=== PATIENT | male | born 2000 | race Hispanic/Latino ===

== ENCOUNTER → 2024-01-21 12:59 | Outpatient (CLI) | payer OTHER, SELFPAY ==
--- NOTE | 2024-01-21 14:00 | DI.MRI.S_ITS ---
PROCEDURE: MR ANKLE LT WO CON INDICATIONS: PAIN IN LEFT ANKLE AND JOINTS TECHNIQUE: Noncontrast sagittal T1 spin echo and T2 fast spin echo with fat saturation, axial proton density fast spin echo and T2 fast spin echo with fat saturation, coronal T1 spin echo and T2 fast spin echo with fat saturation through the ankle/hindfoot. COMPARISON: None. FINDINGS: Image quality: Excellent. Bones and joints: No acute trabecular bone injury or fracture. No hindfoot coalitions. No osteochondral injuries of the talar dome. Degenerative cystic changes versus intraosseous ganglion are seen in the central calcaneus. Small tibiotalar effusion. Medial structures: The deltoid ligament and the spring ligament complex are intact. The posterior tibialis, flexor digitorum longus, and flexor hallucis longus tendons are intact. The posterior tibial neurovascular bundle appears normal within the tarsal tunnel, without extrinsic mass effect. Lateral structures: Full-thickness tearing of the anterior talofibular ligament and likely the calcaneofibular ligament. The posterior talofibular ligament demonstrates a low-grade sprain. There is mild adjacent edema and fluid lateral to the ankle. The anterior and posterior tibiofibular ligaments are intact. Peroneus brevis and longus tendons are intact. Anterior structures: The tibialis anterior, extensor hallucis longus, and extensor digitorum longus tendons appear intact. Posterior and plantar structures: Achilles tendon is intact. The proximal plantar fascia is intact. No abductor digiti minimi muscle atrophy to suggest Dial neuropathy. IMPRESSION: 1. Complete tearing of the anterior talofibular ligament and the calcaneofibular ligament. Low-grade sprain of the posterior talofibular ligament. 2. No acute trabecular bone injury. No acute tendon injury is seen. Approved by: Raimundo Guillen M.D. on 01/21/2024 at 16:33
== END ==
PROVIDERS: Referring Provider Nurse Practitioner Family; Visit Provider Nurse Practitioner Family
DX: S93.492A Sprain of other ligament of left ankle, initial encounter (principal); S93.412A Sprain of calcaneofibular ligament of left ankle, initial encounter; M25.572 Pain in left ankle and joints of left foot
CPT/HCPCS: 73721